=== PATIENT | female | born 1955 | race Hispanic/Latino ===

== ENCOUNTER → 2019-06-26 | Outpatient (CLI) | payer OTHER, MEDICARE | END | disposition home or self-care (01) | LOC: RAH 09:37 | PROVIDERS: ATTEND Internal Medicine Gastroenterology | DX: K76.0 Fatty (change of) liver, not elsewhere classified (principal); R16.0 Hepatomegaly, not elsewhere classified; Z90.49 Acquired absence of other specified parts of digestive tract | CPT/HCPCS: 76700 ==

== ENCOUNTER 2020-02-23 09:09 | Emergency (ER) | payer OTHER, MEDICARE ==
[2020-02-23 09:40] LABS: BASOPHILS % (AUTO) 0.4 % (0.0-5.0); EOSINOPHILS % (AUTO) 0.8 % (0.0-8.0); HEMATOCRIT 36.1 % (36-48); LYMPHOCYTES % (AUTO) 36.6 % (21.0-51.0); MEAN CORPUSCULAR HEMOGLOBIN 31.2 pg (27.0-33.0); MEAN CORPUSCULAR HGB CONC 34.1 g/dL (32.0-36.0); MEAN CORPUSCULAR VOLUME 91.6 fL (79-99); MONOCYTES % (AUTO) 5.4 % (3.0-13.0); NEUTROPHILS % (AUTO) 56.2 % (40.0-77.0); PLATELET COUNT (AUTO) 245 K/uL (130-400); RED BLOOD CELL COUNT(AUTO) 3.94 MIL/uL (4.00-5.50); RED CELL DISTRIBUTION WIDTH 13.4 % (11.0-15.5); WHITE BLOOD COUNT (AUTO) 8.9 K/uL (4.8-10.8)
[2020-02-23] MEDS ORDERED: FENTANYL CITRATE PF 50 MCG/1 ML 2ML VIAL ONE ×2 (09:45→10:44)
[2020-02-23] MEDS ORDERED: SODIUM CHLORIDE 0.9% 500ML 500 ML IV ONE (09:46)
[2020-02-23 10:25] LABS: CREATININE 0.9 mg/dL (0.5-1.5)
[2020-02-23 10:29] LABS: ALBUMIN 3.5 g/dL (3.5-5.0); BILIRUBIN,TOTAL 0.3 mg/dL (0.2-1.0); TOTAL PROTEIN, SERUM 6.9 g/dL (6.0-8.3)
[2020-02-23 11:07] LABS: APPEARANCE,URINE Clear (CLEAR); BILIRUBIN,URINE Negative (NEGATIVE); COLOR,URINE Yellow (YELLOW); GLUCOSE, URINE (UA) Negative (NEGATIVE); KETONES,URINE Negative (NEGATIVE); LEUKOCYTE ESTERASE ,URINE Trace (NEGATIVE); NITRATE,URINE Positive (NEGATIVE); OCCULT BLOOD,URINE Negative (NEGATIVE); PH,URINE 5.5 (5.0-8.0); PROTEIN,URINE Negative (NEGATIVE); UROBILINOGEN,URINE 0.2 mg/dL (0.2-1.0)
[2020-02-23 11:12] LABS: BACTERIA,URINE Moderate /HPF (None Seen); RBC,URINE 0-1 /HPF (0-1); SQUAMOUS EPITHELIAL CELL,UR Rare /HPF (0-2); WBC,URINE 0-1 /HPF (0-1)
== END 2020-02-23 15:22 | disposition home or self-care (01) ==
LOC: EDH 09:09
DX: S42.425A Nondisplaced comminuted supracondylar fracture without intercondylar fracture of left humerus, initial encounter for closed fracture (principal); S09.90XA Unspecified injury of head, initial encounter; R19.7 Diarrhea, unspecified; M54.2 Cervicalgia; I10 Essential (primary) hypertension; E78.00 Pure hypercholesterolemia, unspecified; E11.9 Type 2 diabetes mellitus without complications; Z88.6 Allergy status to analgesic agent; W06.XXXA Fall from bed, initial encounter; Y93.89 Activity, other specified; Y92.89 Other specified places as the place of occurrence of the external cause; Y99.8 Other external cause status
CPT/HCPCS: 29105; 36415; 70450; 72125; 73030; 73080; 73200; 80053; 81001; 82948; 85025; 87077; 87088; 87186; 93005; 96374; 96376; 99285; J3010 ×2; J7040

== ENCOUNTER 2020-03-03 22:14 | Observation (INO) | payer OTHER, MEDICARE ==
[~2020-03-03] VITALS: Ht 165.1 cm; Wt 42.4 kg
[2020-03-03] MEDS ORDERED: ONDANSETRON HCL 4 MG/2 ML VIAL ONE (22:54)
[2020-03-03 22:55] LABS: BASOPHILS % (AUTO) 0.2 % (0.0-5.0); EOSINOPHILS % (AUTO) 2.4 % (0.0-8.0); HEMATOCRIT 38.7 % (36-48); LYMPHOCYTES % (AUTO) 22.4 % (21.0-51.0); MEAN CORPUSCULAR HEMOGLOBIN 31.3 pg (27.0-33.0); MEAN CORPUSCULAR HGB CONC 33.9 g/dL (32.0-36.0); MEAN CORPUSCULAR VOLUME 92.6 fL (79-99); MONOCYTES % (AUTO) 7.7 % (3.0-13.0); PLATELET COUNT (AUTO) 383 K/uL (130-400); RED BLOOD CELL COUNT(AUTO) 4.18 MIL/uL (4.00-5.50); RED CELL DISTRIBUTION WIDTH 13.2 % (11.0-15.5)
[2020-03-03] MEDS ORDERED: SIMETHICONE 80 MG TAB.CHEW ONE (22:55)
[2020-03-03 23:03] LABS: CREATININE 0.7 mg/dL (0.5-1.5); POTASSIUM 4.2 mmol/L (3.5-5.1)
[2020-03-03 23:08] LABS: ALBUMIN 3.8 g/dL (3.5-5.0); BILIRUBIN,TOTAL 0.6 mg/dL (0.2-1.0)
[2020-03-03 23:31] LABS: APPEARANCE,URINE Clear (CLEAR); BILIRUBIN,URINE Negative (NEGATIVE); COLOR,URINE Yellow (YELLOW); GLUCOSE, URINE (UA) Negative (NEGATIVE); KETONES,URINE Negative (NEGATIVE); LEUKOCYTE ESTERASE ,URINE Trace (NEGATIVE); NITRATE,URINE Negative (NEGATIVE); OCCULT BLOOD,URINE Negative (NEGATIVE); PROTEIN,URINE Negative (NEGATIVE)
[2020-03-03 23:38] LABS: BACTERIA,URINE Rare /HPF (None Seen); RBC,URINE None Seen /HPF (0-1); SQUAMOUS EPITHELIAL CELL,UR Rare /HPF (0-2); WBC,URINE 0-1 /HPF (0-1)
[2020-03-03] MEDS ORDERED: HYOSCYAMINE SULFATE 0.125 MG TAB.SUBL SL ONE ×2 (23:53→23:57)
[2020-03-04] MEDS ORDERED: ONDANSETRON HCL 4 MG/2 ML VIAL ONE (01:10)
[2020-03-04] MEDS ORDERED: LOPERAMIDE HCL 2 MG CAP PO ONE (01:10)
[2020-03-04] MEDS ORDERED: SUCRALFATE 1 GM TABLET ONE (01:11)
[2020-03-04] MEDS ORDERED: SODIUM CHLORIDE 0.9% 500ML 500 ML IV ONE (05:07)
[2020-03-04 05:12] VITALS: BP 129/66
[2020-03-04 07:00] VITALS: BP 136/62
[2020-03-04 11:00] VITALS: BP 105/56
[2020-03-04] MEDS ORDERED: CELE-84 PO (13:40)
[2020-03-04] MEDS ORDERED: OMEP40CA13 PO (13:40)
[2020-03-04] MEDS ORDERED: GABA300C PO (13:40)
[2020-03-04] MEDS ORDERED: TRAM50TA4 PO (13:40)
[2020-03-04] MEDS ORDERED: ROSU5TAB12 PO (13:40)
[2020-03-04] MEDS ORDERED: METF-444 PO (13:40)
--- NOTE | 2020-03-04 14:00 | NUR ---
CM - [place] PER SPOUSE (MAMADOU GARCIA [phone]), PATIENT LIVES WITH FAMILY, NEEDS ASSISTANCE WITH ADLS WHICH SHE USES PROVIDER SERVICES THROUGH [employer] AT 30 HRS WEEKLY. SPOUSE REPORTS NO DME AT HOUSEHOLD. SPOUSE FEELS SAFE WITH PATIENT GOING HOME AT IN. CM TO FOLLOW UP. Addendum: 03/04/20 at 1406 by DEBORAH WAHL Amended: Links added.
[2020-03-04 16:00] VITALS: BP 130/76
[2020-03-04 20:00] VITALS: BP 141/69
[2020-03-04] MEDS ORDERED: TRAMADOL HCL 50 MG TABLET PO PRN (20:00)
[2020-03-04] MEDS ORDERED: SODIUM CHLORIDE 0.9% 1000ML 1,000 ML IV SCH (20:15)
[2020-03-04] MEDS ORDERED: ONDANSETRON HCL 4 MG/2 ML VIAL IVP PRN (20:45)
[2020-03-04] MEDS: INSULIN LISPRO 100 UNIT/ML 3ML SQ SCH (20:45)
[2020-03-04] MEDS: GABAPENTIN 300 MG CAPSULE PO SCH (20:48)
[2020-03-04] MEDS: FAMOTIDINE/PF 20 MG/2 ML VIAL IV SCH (20:53)
[2020-03-04] MEDS ORDERED: ATORVASTATIN CALCIUM 10 MG TABLET PO SCH (21:00)
--- NOTE | 2020-03-04 22:00 | NUR ---
MD VISIT DR. FERNANDEZ ROUNDED AT 2100, PT SEEN AND EXAMINED. HOME MEDS RESUMED EXCEPT FOR THE METFORMIN AND THE CELEBREX, IVF RATE INCREASED TO 65 CC/HR FR 25. STARTED PT ON GLUCOMETER CHECKS AC AND HS PER HUMULOG R S/S 1 PROTOCOL. PT'S URINE TESTED POSITIVE FOR E. COLI 2 WEEKS PRIOR WHEN SHE CAME IN FOR THE LEFT ELBOW INJURY SECONDARY FR A FALL INCIDENT. MD ORDERED A URINE CULTURE WHICH WAS SENT. PT WITHOUT ANY COMPLAINTS OF ANY ABDOMINAL PAIN, NO NAUSEA AND VOMITING, TOLERATING CLEAR LIQUIDS WELL. BLOOD SUGAR WAS 103. NO MORE DIARRHEA EPISODES SINCE PT WAS ADMITTED TO THE FLOOR AT 0500. MEDICATED WITH TRAMADOL PRN FOR GEN BODY ACHES, MED THAT SHE USUALLY TAKES AT HOME. RESTING IN THE BED AFTER HOME MEDS WERE RESTARTED, VITAL SIGNS STABLE. WILL BE STARTED ON A REGULAR DIABETIC DIET IN THE AM.
[2020-03-05] VITALS: BP 138/63
[2020-03-05 04:00] VITALS: BP 130/61
[2020-03-05 05:29] LABS: HEMATOCRIT 32.7 % (36-48); MEAN CORPUSCULAR HEMOGLOBIN 30.1 pg (27.0-33.0); MEAN CORPUSCULAR HGB CONC 32.4 g/dL (32.0-36.0); MEAN CORPUSCULAR VOLUME 92.9 fL (79-99); RED BLOOD CELL COUNT(AUTO) 3.52 MIL/uL (4.00-5.50); RED CELL DISTRIBUTION WIDTH 13.2 % (11.0-15.5)
[2020-03-05 05:49] LABS: ALBUMIN 2.9 g/dL (3.5-5.0); BILIRUBIN,TOTAL 0.7 mg/dL (0.2-1.0); CREATININE 0.8 mg/dL (0.5-1.5); POTASSIUM 3.6 mmol/L (3.5-5.1); TOTAL PROTEIN, SERUM 6.1 g/dL (6.0-8.3)
[2020-03-05] MEDS: INSULIN LISPRO 100 UNIT/ML 3ML SQ SCH ×2 (06:01→11:16)
[2020-03-05 07:00] VITALS: BP 147/66
[2020-03-05] MEDS ORDERED: PANTOPRAZOLE SODIUM 40 MG TABLET.DR PO SCH (07:30)
[2020-03-05] MEDS: GABAPENTIN 300 MG CAPSULE PO SCH (08:17)
--- NOTE | 2020-03-05 08:18 | NUR ---
PT ACCIDENTLY REMOVED HER IV.
[2020-03-05] MEDS: FAMOTIDINE/PF 20 MG/2 ML VIAL IV SCH (08:36)
[2020-03-05 11:00] VITALS: BP 126/61
== END 2020-03-05 15:00 | disposition home or self-care (01) ==
LOC: EDH 22:14 → EDHIP 03-04 01:45 → 4BH 03-04 05:01
PROVIDERS: ADMIT Internal Medicine; ATTEND Internal Medicine
DX: K29.00 Acute gastritis without bleeding (principal); R19.7 Diarrhea, unspecified; R11.2 Nausea with vomiting, unspecified; E11.9 Type 2 diabetes mellitus without complications; I10 Essential (primary) hypertension; E78.5 Hyperlipidemia, unspecified; Z90.49 Acquired absence of other specified parts of digestive tract; Z90.710 Acquired absence of both cervix and uterus; Z98.890 Other specified postprocedural states
CPT/HCPCS: 36415 ×2; 74176; 80053 ×2; 81001; 82948 ×3; 83690; 85025; 85027; 87077; 87088; 87186; 93005; 96374; 99285; G0378 ×24; J2405 ×2; J3490; J7030; J7040

== ENCOUNTER 2020-05-14 11:52 | Emergency (ER) | payer OTHER, MEDICARE ==
[~2020-05-14 11:52] MED LIST: CELE-84 PO; GABA300C PO; METF-444 PO; OMEP40CA13 PO; ROSU5TAB12 PO; TRAM50TA4 PO
== END 2020-05-14 13:47 | disposition home or self-care (01) ==
LOC: EDH 11:52
DX: R05 Cough (principal); Z20.828 Contact with and (suspected) exposure to other viral communicable diseases; J34.89 Other specified disorders of nose and nasal sinuses; E11.9 Type 2 diabetes mellitus without complications; I10 Essential (primary) hypertension; E78.00 Pure hypercholesterolemia, unspecified; Z88.6 Allergy status to analgesic agent; Z86.19 Personal history of other infectious and parasitic diseases
CPT/HCPCS: 71045; 87804

== ENCOUNTER 2021-11-17 08:07 | Emergency (ER) | payer MEDICARE, OTHER ==
[~2021-11-17] VITALS: Ht 165.1 cm; Wt 89.8 kg
[~2021-11-17 08:07] MED LIST changes: -OMEP40CA13 PO; +OMEP40CA21 PO
[2021-11-17] MEDS ORDERED: BENZONATATE 100 MG CAPSULE PO ONE (09:00)
[2021-11-17] MEDS ORDERED: ACET-2247 PO (11:59)
[2021-11-17] MEDS ORDERED: GUAIF10 PO (11:59)
[2021-11-17] MEDS ORDERED: ALBU8.5H8 IH (11:59)
[2021-11-17] MEDS ORDERED: BENZ-39 PO (11:59)
[2021-11-17] MEDS ORDERED: ALBUTEROL INHALER 90MCG/INH IH ONE (12:00)
[2021-11-17] MEDS ORDERED: ACETAMINOPHEN 500 MG TABLET PO ONE (12:00)
[2021-11-17 12:36] VITALS: BP 132/74
== END 2021-11-17 12:50 | disposition home or self-care (01) ==
LOC: EDH 08:07
DX: U07.1 COVID-19 (principal); J06.9 Acute upper respiratory infection, unspecified; E66.01 Morbid (severe) obesity due to excess calories; Z68.32 Body mass index [BMI] 32.0-32.9, adult; Z88.5 Allergy status to narcotic agent; Z79.899 Other long term (current) drug therapy; Z90.89 Acquired absence of other organs; Z90.49 Acquired absence of other specified parts of digestive tract; Z98.890 Other specified postprocedural states
CPT/HCPCS: 71045; 87635; 87804 ×2; 99284; C9803

== ENCOUNTER 2022-11-09 22:47 | Emergency (ER) | payer OTHER ==
[~2022-11-09] VITALS: Ht 162.6 cm; Wt 85.7 kg
[~2022-11-09 22:47] MED LIST changes: +ACET-2247 PO; +ALBU8.5H8 IH; +BENZ-39 PO; +GUAIF10 PO
[2022-11-09 22:50] VITALS: BP 124/74
== END 2022-11-10 00:26 | disposition home or self-care (01) ==
LOC: EDH 22:47
DX: B34.9 Viral infection, unspecified (principal); E11.9 Type 2 diabetes mellitus without complications; E78.00 Pure hypercholesterolemia, unspecified; Z79.899 Other long term (current) drug therapy; Z88.5 Allergy status to narcotic agent; Z90.49 Acquired absence of other specified parts of digestive tract; Z20.822 Contact with and (suspected) exposure to COVID-19
CPT/HCPCS: 99283; 87635; 87880; 87804 ×2; C9803

== ENCOUNTER 2023-11-23 12:51 | Emergency (ER) | payer OTHER ==
[~2023-11-23] VITALS: Ht 162.6 cm; Wt 80.7 kg
[~2023-11-23 12:51] MED LIST changes: +CELE-125 PO; -CELE-84 PO; -ROSU5TAB12 PO; +ROSU5TAB43 PO
[2023-11-23 13:54] LABS: BASOPHILS # (AUTO) 0.03 K/uL (0.00-0.20); BASOPHILS % (AUTO) 0.3 % (0.0-5.0); EOSINOPHILS # (AUTO) 0.11 K/uL (0.00-0.70); EOSINOPHILS % (AUTO) 1.3 % (0.0-8.0); HEMATOCRIT 37.5 % (36-48); IMMATURE GRANULOCYTE ABSOLUTE 0.03 K/uL (0-1); LYMPHOCYTES # (AUTO) 2.3 K/uL (1.0-4.8); LYMPHOCYTES % (AUTO) 26.5 % (21.0-51.0); MEAN CORPUSCULAR HEMOGLOBIN 30.9 pg (27.0-33.0); MEAN CORPUSCULAR HGB CONC 33.9 g/dL (32.0-36.0); MEAN CORPUSCULAR VOLUME 91.2 fL (79-99); MONOCYTES # (AUTO) 0.5 K/uL (0.1-1.0); MONOCYTES % (AUTO) 5.3 % (3.0-13.0); NEUTROPHILS # (AUTO) 5.7 K/uL (1.8-7.7); NEUTROPHILS % (AUTO) 66.3 % (40.0-77.0); PLATELET COUNT (AUTO) 267 K/uL (130-400); RED BLOOD CELL COUNT(AUTO) 4.11 MIL/uL (4.00-5.50); RED CELL DISTRIBUTION WIDTH 12.6 % (11.0-15.5); WHITE BLOOD COUNT (AUTO) 8.6 K/uL (4.8-10.8)
[2023-11-23 14:04] LABS: CREATININE 0.7 mg/dL (0.5-1.0); POTASSIUM 3.9 mmol/L (3.5-5.1)
[2023-11-23 14:13] LABS: ALBUMIN 3.8 g/dL (3.5-5.0); BILIRUBIN,DIRECT 0.1 mg/dL (0.0-0.3); BILIRUBIN,TOTAL 0.4 mg/dL (0.2-1.0); TOTAL PROTEIN, SERUM 7.1 g/dL (6.0-8.3)
[2023-11-23 14:14] LABS: B-TYPE NATRIURETIC PEPTIDE 22 pg/mL (0-100)
[2023-11-23] MEDS: KETOROLAC 15MG/ML VIAL (15MG/ML) IV ONE (14:19)
[2023-11-23] MEDS: DIAZEPAM 5 MG/ML 2 ML SYG IVP ONE (14:19)
[2023-11-23 15:38] VITALS: BP 125/64; PULSE 74; RESP 14; O2SAT 97
== END 2023-11-23 15:41 | disposition home or self-care (01) ==
LOC: EDH 12:51
DX: R10.13 Epigastric pain (principal); S23.8XXA Sprain of other specified parts of thorax, initial encounter; X58.XXXA Exposure to other specified factors, initial encounter; Y93.89 Activity, other specified; Y92.89 Other specified places as the place of occurrence of the external cause; Y99.8 Other external cause status; I10 Essential (primary) hypertension; E11.9 Type 2 diabetes mellitus without complications; E78.00 Pure hypercholesterolemia, unspecified; Z79.899 Other long term (current) drug therapy; Z90.89 Acquired absence of other organs; Z90.49 Acquired absence of other specified parts of digestive tract; Z90.710 Acquired absence of both cervix and uterus; Z98.890 Other specified postprocedural states; Z88.5 Allergy status to narcotic agent
CPT/HCPCS: 99285; 74176; 96374; 71045; 96375; 82550; 80076; 84484; 80048; 83880; 83690; 85025; 36415; 93005; J3360; J1885

== ENCOUNTER 2025-01-31 22:54 | Emergency (ER) | payer OTHER ==
[~2025-01-31] VITALS: Ht 162.6 cm; Wt 72.6 kg
[~2025-01-31 22:54] MED LIST changes: +GUAI100L96 PO; -GUAIF10 PO; -ROSU5TAB43 PO; +ROSU5TAB51 PO
--- NOTE | 2025-01-31 23:16 | ERN ---
ED Note History of Present Illness Stated Complaint: RT LEG PAIN Chief Complaint: Lower Extremity Pain/Injury Time Seen by MD: 22:57 Dictation: PATIENT IS A 69-YEAR-OLD FEMALE THAT IS STAYING HERE IN THE HOSPITAL WITH A HER MOTHER WHO IS UPSTAIRS ADMITTED. SHE STATES SHE HAS CHRONIC BILATERAL KNEE PAIN WORSE ON THE RIGHT SHE HAS HAD FOR SEVERAL MONTHS AND NORMALLY GETS A STEROID SHOT FROM HER DOCTOR IN [facility]. SHE STATES SHE IS DUE FOR A KNEE REPLACEMENT IN THE NEXT SEVERAL WEEKS HOWEVER IS HAVING PAIN NOW AND WISHES SOME ASSISTANCE. TAKEN ANYTHING PRIOR TO ARRIVAL FOR PAIN TODAY. NO FEVER NO CHILLS NO NAUSEA VOMITING NO CALF PAIN. Allergies: Coded Allergies: codeine (Unverified Allergy, Unknown, 02/23/20) Home Meds Active Scripts Albuterol Sulfate (Proair Hfa) 8.5 Gm Hfa.aer.ad, 1 INH IH Q4HPRN PRN for COUGH, #1 INHALER 0 Refills Prov:BENNETT EWING MD 11/17/21 Benzonatate (Tessalon Perles) 100 Mg Cap, 100 MG PO TID PRN for COUGH, #15 CAP 0 Refills Prov:BENNETT EWING MD 11/17/21 Guaifenesin (Robitussin Syrp) 100 Mg/5 Ml Syrp, 200 MG PO QID PRN for COUGH/COLD SYMPTOMS, #150 ML 0 Refills Prov:BENNETT EWING MD 11/17/21 Acetaminophen (Tylenol) 325 Mg Tablet, 650 MG PO Q4HPRN PRN for PAIN, #30 TAB 0 Refills Prov:BENNETT EWING MD 11/17/21 Reported Medications Gabapentin (Neurontin) 300 Mg Capsule, 300 MG PO TID, CAP 1020 Rosuvastatin Calcium (Rosuvastatin Calcium) 5 Mg Tablet, 5 MG PO HS, TAB 1020 Metformin HCl (Metformin HCl) 500 Mg Tablet, 1000 MG PO BIDMEALS, TAB 1020 Omeprazole (Omeprazole) 40 Mg Capsule.dr, 40 MG PO ACBKFST, CAP 20 Tramadol Hcl (Tramadol HCl) 50 Mg Tablet, 50 MG PO Q6HPRN PRN for PAIN LEVEL 4 TO 6, TAB 20 Celecoxib (Celecoxib) 200 Mg Capsule, 200 MG PO BIDMEALS, CAP 10/2/20 Past Medical History Past Medical History: Arthritis, Diabetes-Type I, Diabetes-Type II, High Cholesterol, Heart Disease, Hypertension, Other Additional Past Medical Hx: ESBL, E-COLI Surgical History: Hysterectomy, Tonsillectomy, Cholecystectomy, Other Surgical History Other: BACK RN Note Reviewed/Agreed w/PFSH: Yes Review of System Dictation CONSTITUTIONAL: NEGATIVE EXCEPT FOR HPI HEAD/FACE: NEGATIVE EXCEPT FOR HPI EENT: NEGATIVE EXCEPT FOR HPI RESPIRATORY: NEGATIVE EXCEPT FOR HPI GASTROINTESTINAL/ABDOMINAL: NEGATIVE EXCEPT FOR HPI GENITOURINARY: NEGATIVE EXCEPT FOR HPI MUSCULOSKELETAL: NEGATIVE EXCEPT FOR HPI RIGHT KNEE PAIN INTEGUMENTARY: NEGATIVE EXCEPT FOR HPI NEUROLOGICAL/PSYCH: NEGATIVE EXCEPT FOR HPI HEMATOLOGIC/LYMPHATIC: NEGATIVE EXCEPT FOR HPI ALL SYSTEMS NEGATIVE, EXCEPT NOTED ABOVE. 13 POINT REVIEW OF SYSTEMS ASSESSED AND ALL NEGATIVE EXCEPT FOR ABOVE. Initial Vital Sign VS Vital Signs Date Time Temp Pulse Resp B/P (MAP) Pulse Ox O2 Delivery O2 Flow Rate FiO2 01/31/25 22:56 97.5 79 16 132/69 97 Room Air Physical Exam Dictation VITAL SIGNS REVIEWED GENERAL APPEARANCE: ALERT, ORIENTED X 3, MODERATE ACUTE DISTRESS, WELL DEVELOPED, NOURISHED. HEAD AND FACE: NON-TRAUMATIC. EYES: PERRL, PINK CONJUNCTIVAS, EYELID NO TRAUMA, ANTERIOR CHAMBER WITH ARCUS SENILIS. EARS: PINNAS INTACT AND NO SIGNS OF TRAUMA OR ERYTHEMA EAR CANALS CLEAR AND NO DISCHARGE TM NO ERYTHEMA NOSE: NO DISCHARGE, NO BLEEDING. OROPHARYNX: MOUTH NORMAL, TONGUE PINK, PHARYNX CLEAR,NO ERYTHEMA, TONSILS NO EXUDATES, NO ABSCESSES NOTED, MUCOUS MEMBRANE MOIST NECK: SUPPLE, NON-TENDER, NO THYROMEGALY, NO MASSES, NO JVD, NO BRUITS BREAST:DEFERRED CHEST:NO TENDERNESS, NO CREPITUS, NO PARADOXICAL MOVEMENT, NO RETRACTIONS LUNGS:CLEAR, WELL-VENTILATED, SYMMETRIC, NO RALES, NO WHEEZING, NO RHONCHI, NO STRIDOR, GOOD BREATH SOUNDS BILATERALLY HEART: REGULAR RATE, REGULAR RHYTHM, NO MURMUR, NO GALLOPS VASCULAR: NO PERIPHERAL EDEMA, ABDOMEN: SOFT, POSITIVE BOWEL SOUNDS, NONDISTENDED, NO GUARDING, NONTENDER, NO REBOUND, NO MASSES NO HEPATOMEGALY, NO SPLENOMEGALY, NO LIANG'S SIGN, NO HERNIAS. RECTAL: DEFERRED GENITAL: DEFERRED NEUROLOGICAL: NORMAL SPEECH, MOTOR FUNCTION INTACT, SENSORY FUNCTION INTACT MUSCULOSKELETAL: NECK NONTENDER, FULL RANGE OF MOTION, BACK NONTENDER, FULL RANGE OF MOTION, EXTREMITIES: ARTHRITIC CHANGES NOTED TO BILATERAL KNEES GREATER ON THE RIGHT. CREPITATION WITH A ROM SKIN: COLOR PINK, DRY, NO TURGOR, NO RASH, NO LACERATIONS, NO ABRASIONS, NO CONTUSIONS. LYMPHATIC: DEFERRED Results (Laboratory/Radiology) Laboratory/Radiology KNEE X-RAY DEMONSTRATES DJD. FRACTURE Labs Reviewed?: Yes ED Course ED Course Orders Procedure Category Date Status Time Dexamethasone 4mg/Ml PHA 01/31/25 Complete 1ml Vial (Dexametha 23:30 Acetaminophen 500mg PHA 01/31/25 Complete Tab (Tylenol 500mg T 23:30 Knee 3vws Rt RAD 01/31/25 Taken 23:14 Current Medications Medications (Trade) Dose Ordered Sig/Markus Route PRN Reason Start Time Stop Time Status Last Admin Dose Admin Acetaminophen (TYLenol 500MG TAB) 1,000 mg ONCE ONCE PO 01/31/25 23:30 01/31/25 23:31 DC 01/31/25 23:22 Dexamethasone Sodium Phosphate (dexaMETHasone 4MG/ML 1ML VIAL) 8 mg ONCE ONCE IM 01/31/25 23:30 01/31/25 23:31 DC 01/31/25 23:23 Vital Signs Date Time Temp Pulse Resp B/P (MAP) Pulse Ox O2 Delivery O2 Flow Rate FiO2 01/31/25 22:56 97.5 79 16 132/69 97 Room Air 2340/PATIENT STATES PAIN IS IMPROVED AFTER TREATMENT. Medical Decision Making MDM MEDICAL DISCHARGE MAKING BASED ON EMPIRIC TREATMENT FOR ACUTE KNEE PAIN X-RAY OF LEFT KNEE PATIENT HAS A DEGENERATIVE JOINT DISEASE RIGHT KNEE DISCHARGED HOME WITH MEDROL DOSEPAK TOLD SEE HER PRIMARY CARE DOCTOR IN 1-2 DAYS DX & DISP Disposition: Discharge Departure Impression: Primary Impression: Degenerative joint disease of right knee Additional Impression: Knee pain, right Condition: Stable Scripts Methylprednisolone (Medrol) 4 Mg Tab.ds.pk 1 TAB PO AD for 6 Days, #21 TAB 0 Refills 6 on day 1 then reduce by one tablet daily until gone Prov: MELISSA KIRAN LINEN SUPERVISOR 01/31/25 Additional Instructions: FOLLOW-UP WITH PRIMARY CARE PROVIDER IN 1 TO 2 DAYS. TAKE MEDICATIONS DIREC RANDI HERE IN THE EMERGENCY ROOM. OKAY TO CONTINUE HOME MEDICATIONS UNLESS OTHERWISE DISCUSSED DURING YOUR VISIT IN THE EMERGENCY ROOM TODAY. RETURN TO YOUR NEAREST EMERGENCY ROOM IF SYMPTOMS WORSEN OR IF THERE IS NO IMPROVEMENT. CALL 911 IF YOU NEED IMMEDIATE ASSISTANCE. TAKE TYLENOL OR MOTRIN [id number] NEEDED AND IF NO CONTRAINDICATIONS ARE PRESENT. INCREASE ORAL HYDRATION. A WOUND CULTURE OR URINE CULTURE WAS ORDERED HERE IN THE EMERGENCY ROOM DEPARTMENT PLEASE FOLLOW-UP WITH PRIMARY CARE PROVIDER AND ADVISE THEM TO GET REPEAT PORTS FROM OUR FACILITY. IF YOU HAD ANY GÓMEZ WRAP/SPLINTS THAT WERE APPLIED HERE, PLEASE DO NOT REMOVE THEM UNTIL YOU SEE YOUR PRIMARY CARE OR SPECIALTY. TAKE MEDROL DOSEPAK DIRECTED UNTIL GONE. SUGGEST TYLENOL ARTHRITIS 650 MG/[id number] ONE TABLET EVERY 8 HOURS FOR THE NEXT TWO DAYS. WARM COMPRESSES TO YOUR KNEES THREE TO 4 TIMES A DAY. SEE YOUR ORTHOPEDIC SURGEON FOR FOLLOW UP Referrals: BENJAMIN FERNANDEZ MD (PCP) Time of Disposition: 23:42 I have reviewed the case, and I agree with, Diagnosis and Plan MELISSA KIRAN NP Jan 31, 2025 23:16
[2025-01-31] MEDS ORDERED: METH4TAB3 PO (23:43)
[2025-02-01 00:02] VITALS: BP 124/74; PULSE 76; RESP 18; TEMP 98.3; O2SAT 99
--- NOTE | 2025-02-01 00:12 | HMCIMG ---
EXAM: CR Right Knee, 3 views CLINICAL HISTORY: Pain. COMPARISON: None provided. FINDINGS: No acute fracture or aggressive appearing osseous lesion. Mild osteopenia. Medial compartment predominant moderate tricompartmental knee joint osteoarthritis. Small suprapatellar effusion. IMPRESSION: No acute bony abnormality is evident. Mild osteopenia. Medial compartment predominant moderate tricompartmental knee joint osteoarthritis. Small suprapatellar effusion. /[place]
== END 2025-02-01 00:04 | disposition home or self-care (01) ==
LOC: EDH 22:54
DX: M17.11 Unilateral primary osteoarthritis, right knee (principal); E10.9 Type 1 diabetes mellitus without complications; E78.00 Pure hypercholesterolemia, unspecified; I11.9 Hypertensive heart disease without heart failure; Z79.899 Other long term (current) drug therapy; Z88.5 Allergy status to narcotic agent; Z90.49 Acquired absence of other specified parts of digestive tract; Z90.710 Acquired absence of both cervix and uterus
CPT/HCPCS: 99283; 73562; 96372; J1100

== ENCOUNTER 2025-02-23 19:57 | Emergency (ER) | payer OTHER ==
[~2025-02-23] VITALS: Ht 162.6 cm; Wt 76.7 kg
[~2025-02-23 19:57] MED LIST changes: +METH4TAB3 PO
--- NOTE | 2025-02-23 20:16 | ERN ---
ED Note History of Present Illness Stated Complaint: C/O PAIN RIGHT KNEE; Chief Complaint: Knee Injury/Swelling Time Seen by MD: 20:00 Time Seen by Midlevel: 20:00 Dictation: The patient is a 69-year-old female with a history of right knee pain, arthri tis, hyperlipidemia, hypertension who presents to the emergency department with nontraumatic right knee pain. Patient reports she was seen here a month ago for the same reason and they told her she had osteoarthritis but has not follow up with ortho. Denies any fevers. Allergies: Coded Allergies: codeine (Unverified Allergy, Unknown, 02/23/20) Home Meds Active Scripts Methylprednisolone (Medrol) 4 Mg Tab.ds.pk, 1 TAB PO AD for 6 Days, #21 TAB 0 Refills 6 on day 1 then reduce by one tablet daily until gone Prov:MELISSA KIRAN DENTAL ASSISTANT 01/31/25 Albuterol Sulfate (Proair Hfa) 8.5 Gm Hfa.aer.ad, 1 INH IH Q4HPRN PRN for COUGH, #1 INHALER 0 Refills Prov:BENNETT EWING MD 11/17/21 Benzonatate (Tessalon Perles) 100 Mg Cap, 100 MG PO TID PRN for COUGH, #15 CAP 0 Refills Prov:BENNETT EWING MD 11/17/21 Guaifenesin (Robitussin Syrp) 100 Mg/5 Ml Syrp, 200 MG PO QID PRN for COUGH/COLD SYMPTOMS, #150 ML 0 Refills Prov:BENNETT EWING MD 11/17/21 Acetaminophen (Tylenol) 325 Mg Tablet, 650 MG PO Q4HPRN PRN for PAIN, #30 TAB 0 Refills Prov:BENNETT EWING MD 11/17/21 Reported Medications Gabapentin (Neurontin) 300 Mg Capsule, 300 MG PO TID, CAP 03/04/20 Rosuvastatin Calcium (Rosuvastatin Calcium) 5 Mg Tablet, 5 MG PO HS, TAB 10 Metformin HCl (Metformin HCl) 500 Mg Tablet, 1000 MG PO BIDMEALS, TAB 20 Omeprazole (Omeprazole) 40 Mg Capsule.dr, 40 MG PO ACBKFST, CAP 03/04/20 Tramadol Hcl (Tramadol HCl) 50 Mg Tablet, 50 MG PO Q6HPRN PRN for PAIN LEVEL 4 TO 6, TAB 03/04/20 Celecoxib (Celecoxib) 200 Mg Capsule, 200 MG PO BIDMEALS, CAP 03/04/20 Past Medical History Past Medical History: Arthritis, Diabetes-Type II, High Cholesterol, Hypertension Additional Past Medical Hx: ESBL, E-COLI Surgical History: Appendectomy, Hysterectomy Surgical History Other: BACK RN Note Reviewed/Agreed w/PFSH: Yes Review of System Dictation Constitutional: Negative for fever,chills, and weight loss Eyes: Negative for injury, pain,redness, and discharge ENT: Negative for injury,pain or swelling Cardiovascular: Negative for chest pain, palpitations, and edema Respiratory: Negative for shortness of breath, cough, and wheezing, Abdomen/GI: Negative for abdominal pain, nausea, vomiting, diarrhea, and constipation Back: Negative for injury and pain : Negative for injury, bleeding and discharge MS/Extremity: Positive for right knee pain Skin: Negative for rash, and discoloration Neuro: Negative for headache, weakness, numbness, tingling, and seizure Psych: Negative for suicide ideation, homicidal ideation, and hallucinations Initial Vital Sign VS Vital Signs Date Time Temp Pulse Resp B/P (MAP) Pulse Ox O2 Delivery O2 Flow Rate FiO2 02/23/25 19:59 98.4 77 20 138/72 96 Room Air 02/23/25 20:56 0 21 Physical Exam Dictation Vital Signs reviewed General Appearance: Alert, oriented x 3, no acute distress, well developed, nourished. Head and Face: non-traumatic. Eyes: PERRL, pink conjunctivas, eyelid no trauma, anterior chamber with arcus senilis. Ears: Pinnas intact and no signs of trauma or erythema ear canals clear and no discharge TM no erythema Nose: No discharge, no bleeding. Oropharynx: Mouth normal, tongue pink. pharynx clear,no erythema, tonsils no exudates, no abscesses noted, mucous membrane moist Neck: Supple, non-tender, no thyromegaly, no masses, no JVD, no bruits Breast:Deferred Chest:No tenderness, no crepitus, no paradoxical movement, no retractions Lungs:Clear, well-ventilated, symmetric, no rales, no wheezing, no rhonchi, no stridor, good breath sounds bilaterally Heart: Regular rate, regular rhythm, no murmur, no gallops Vascular: no peripheral edema, dorsalis pedis 3+ bilaterally Abdomen: Soft, positive bowel sounds, nondistended, no guarding, nontender, no rebound, no masses no hepatomegaly, no splenomegaly, no Whitehead's sign, no hernias. Rectal: Deferred Genital: Deferred Neurological: Normal speech, motor function intact, sensory function intact Musculoskeletal: Neck nontender, full range of motion, back nontender, full range of motion, Extremities: nontender, full range of motion , no wounds or erythema to right knee, no warmth, no significant swelling. Skin: Color pink, dry, no turgor, no rash, no lacerations, no abrasions, no contusions. Lymphatic: Deferred Results (Laboratory/Radiology) Labs Reviewed?: Yes ED Course ED Course Orders Procedure Category Date Status Time Acetaminophen 500mg PHA 02/23/25 Complete Tab (Tylenol 500mg T 20:30 Ketorolac PHA 02/23/25 Complete Tromethamine 30mg/Ml 20:30 Current Medications Medications (Trade) Dose Ordered Sig/Markus Route PRN Reason Start Time Stop Time Status Last Admin Dose Admin Acetaminophen (TYLenol 500MG TAB) 1,000 mg ONCE ONCE PO 02/23/25 20:30 02/23/25 20:31 DC 02/23/25 21:03 Ketorolac Tromethamine (toRADol) 30 mg ONCE ONCE IM 02/23/25 20:30 02/23/25 20:31 DC 02/23/25 21:03 Vital Signs Date Time Temp Pulse Resp B/P (MAP) Pulse Ox O2 Delivery O2 Flow Rate FiO2 02/23/25 20:56 98.4 75 16 135/70 98 Room Air* 0 21 02/23/25 19:59 98.4 77 20 138/72 96 Room Air Medical Decision Making MDM The patient is a 69-year-old female with a history of right knee pain, arthritis, hyperlipidemia, hypertension who presents to the emergency department with nontraumatic right knee pain. Patient reports she was seen here a month ago for the same reason and they told her she had osteoarthritis but has not follow up with ortho. Denies any fevers. Patient with a right knee osteoarthritis. Was seen here less than a month ago and had an x-ray done that showed no fractures and the osteoarthritis. Patient was supposed to follow up with ortho but has not been able to. Patient with no new acute trauma. On physical exam patient is in no acute distress, neurovascularly intact, ambulatory. We will be discharged to follow up with PCP. Differential diagnosis: Osteoarthritis, knee sprain, chronic knee pain Need for hospitalization: Patient does not meet criteria for hospitalization. There are no social concerns with this patient. DX & DISP Disposition: Discharge Departure Impression: Primary Impression: Degenerative joint disease of right knee Additional Impression: Knee pain, right Condition: Stable Additional Instructions: Please follow up with the your primary doctor in 1-2 days. Follow up with ortho. If anything worsens please return to ER. FOLLOW-UP WITH PRIMARY CARE PROVIDER IN 1 TO 2 DAYS. TAKE MEDICATIONS DIRECTED HERE IN THE EMERGENCY ROOM. OKAY TO CONTINUE HOME MEDICATIONS UNLESS OTHERWISE DISCUSSED DURING YOUR VISIT IN THE EMERGENCY ROOM TODAY. RETURN TO YOUR NEAREST EMERGENCY ROOM IF SYMPTOMS WORSEN OR IF THERE IS NO IMPROVEMENT. CALL 911 IF YOU NEED IMMEDIATE ASSISTANCE. TAKE TYLENOL [id number] NEEDED AND IF NO CONTRAINDICATIONS ARE PRESENT. INCREASE ORAL HYDRATION. A WOUND CULTURE OR URINE CULTURE WAS ORDERED HERE IN THE EMERGENCY ROOM DEPARTMENT PLEASE FOLLOW-UP WITH PRIMARY CARE PROVIDER AND ADVISE THEM TO GET REPEAT PORTS FROM OUR FACILITY. IF YOU HAD ANY GÓMEZ WRAP/SPLINTS THAT WERE APPLIED HERE, PLEASE DO NOT REMOVE THEM UNTIL YOU SEE YOUR PRIMARY CARE OR SPECIALTY. Referrals: BENJAMIN FERNANDEZ MD (PCP) JEWEL JUAREZ DO Time of Disposition: 22:00 I have reviewed the case, and I agree with, Diagnosis and Plan KEVIN HERNANDEZ [facility] Feb 23, 2025 20:16
[2025-02-23 22:06] VITALS: BP 138/70; PULSE 76; RESP 16; TEMP 98.5; O2SAT 98
== END 2025-02-23 22:13 | disposition home or self-care (01) ==
LOC: EDH 19:57
DX: M25.561 Pain in right knee (principal); E11.9 Type 2 diabetes mellitus without complications; E78.00 Pure hypercholesterolemia, unspecified; I10 Essential (primary) hypertension; Z79.899 Other long term (current) drug therapy; Z88.5 Allergy status to narcotic agent; Z90.49 Acquired absence of other specified parts of digestive tract; Z90.710 Acquired absence of both cervix and uterus
CPT/HCPCS: 99283; 96372; J1885